=== PATIENT | male | born 1940 | race Caucasian/White ===

== ENCOUNTER 2019-12-27 08:20 | Day surgery (SDC) | payer MEDICARE ==
[2019-12-22 14:35] VITALS: BMI 25.0
[~2019-12-27 08:20] MED LIST: ALPRAZolam 0.25 MG TAB PO PRN; ALPRAZolam 0.5 MG TAB PO PRN; ASPIRIN 325 MG TAB PO ONE; NITROGLYCERIN SL TABS 0.4 MG TAB SUBLINGUAL PRN; SODIUM CHLORIDE 0.9% 1,000 ML IV SCH; SODIUM CHLORIDE 0.9% 1,000 ML in EMPTY BAG 1 BAG IV ONE
[2019-12-27 08:53] VITALS: RESP 16; TEMP 97.6
[2019-12-27] MEDS ORDERED: SODIUM CHLORIDE 0.9% 1,000 ML IV ONE (08:55)
[2019-12-27] MEDS ORDERED: LIDOCAINE 1% INJ 10MG/ML (20 ML MDV) ONE (11:54)
[2019-12-27] MEDS ORDERED: VERAPAMIL 2.5 MG/ML 2 ML AMP ONE (11:54)
[2019-12-27] MEDS ORDERED: MIDAZOLAM 2 MG/2 ML VIAL IV ONE (12:00)
[2019-12-27] MEDS ORDERED: LIDOCAINE 1% INJ 10MG/ML (20 ML MDV) SQ ONE (12:04)
[2019-12-27] MEDS: VERAPAMIL SYRINGE (5 MG/10 ML) INTRAARTER ONE ×2 (12:06→12:16)
[2019-12-27] MEDS ORDERED: HEPARIN SODIUM 1,000 UN/ML (10ML VL) ONE (12:07)
[2019-12-27] MEDS ORDERED: HEPARIN SODIUM 1,000 UN/ML (10ML VL) IV ONE (12:08)
[2019-12-27] MEDS ORDERED: NITROGLYCERIN SL TABS 0.4 MG TAB SUBLINGUAL ONE ×2 (12:14)
[2019-12-27] MEDS ORDERED: IOPAMIDOL-370 100ML BTL INJ ONE (12:16)
[2019-12-27] MEDS ORDERED: SODIUM CHLORIDE 0.9% 1,000 ML IV SCH (12:30)
--- NOTE | 2019-12-27 12:55 | CC ---
CARDIAC CATHETERIZATION REPORT DATE OF SERVICE: 12/27/2019. PROCEDURE: Left heart catheterization and coronary angiography. PERFORMED BY: Dr. Dimitrios Decker. Moderate conscious sedation time was 17 minutes. The patient was administered Versed. His oxygen saturation, hemodynamics and EKG were monitored closely. CLINICAL INFORMATION: Mr. Joel Johnson is an 79-year-old gentleman with a known history of hypertension, smoking, hyperlipidemia, and recently has developed chronic renal failure. He quit smoking about 6 weeks ago. He has been experiencing exertional chest pressure and tightness strongly suggestive of angina. He was therefore advised coronary angiography after due discussion. He was orally hydrated, was brought in and hydrated intravenously and we plan to give him the least amount of contrast. I also had the discussion with the retail coverage merchandiser as well. PROCEDURE NOTE: Under local anesthesia and strict aseptic precautions, a 6-Malagasy introducer was placed in the right radial artery. Using a JR4 and JL3.5 catheters I performed coronary angiography. The same right catheter was used to check LV pressures. LV gram was not performed. Patient received about 45 mL of contrast. He tolerated the procedure well without complications. CARDIAC CATHETERIZATION FINDINGS: Left ventricular end-diastolic pressure was about 15 mmHg without any gradient across aortic valve. Patient seemed to be in and out of atrial fibrillation during the procedure. CORONARY ANGIOGRAPHY FINDINGS: RIGHT CORONARY ARTERY: Technically a nondominant vessel, has no significant disease with limited amount of myocardium being supplied by it. LEFT MAIN CORONARY ARTERY: This is a short patent disease-free vessel that bifurcates into LAD and circumflex. Left main itself is free of significant disease. LEFT ANTERIOR DESCENDING CORONARY ARTERY: Good caliber vessel extends along the anterior wall, gives off a large diagonal proximally and LAD is of a good caliber. There is no significant disease in the LAD. The diagonal has minor irregularities. The LAD has no significant disease, gives off septal and diagonal branches runs all the way to the apex supplying a sizable amount of myocardium. The distal LAD supplies the inferoapical portion of left ventricle. No significant disease other than minor irregularities of no more than 30% to 35%. LEFT POSTERIOR CIRCUMFLEX CORONARY ARTERY: This is a dominant vessel gives off a good- sized obtuse marginal proximally, tortuous. No significant disease and distally the vessel bifurcates into PDA and PLV, both of which have minor irregularities. No significant disease. Circumflex is dominant and relatively disease free. LEFT VENTRICULOGRAM: Left ventriculogram was not performed. FINAL IMPRESSION: This patient has a left dominant system. No significant coronary artery disease. Minor irregularities,. Mild to moderate amount of calcification. Filling pressures are acceptable and no gradient across aortic valve. RECOMMENDATIONS: Findings were discussed with the patient and family. I am recommending continued medical therapy with risk factor modification. The patient will be hydrated today discharged later on today. BUN and creatinine will be checked in 3 days and he will see retail coverage merchandiser in one week and I will see him next week. Advised to continue to refrain from smoking. Given the fact, he has some atrial fibrillation episodes, I am placing a 24-hour Holter today and we will initiate him on Eliquis 2.5 mg b.i.d. Discussed my thoughts in detail with the patient and family. ESTHER / ALMA: [id number] /
[2019-12-27 17:06] VITALS: BP 163/71; PULSE 77
== END 2019-12-27 18:33 | disposition home or self-care (01) ==
LOC: CATHCVL 08:20
PROVIDERS: ATTEND Internal Medicine Interventional Cardiology
DX: I25.110 Atherosclerotic heart disease of native coronary artery with unstable angina pectoris (principal); I12.9 Hypertensive chronic kidney disease with stage 1 through stage 4 chronic kidney disease, or unspecified chronic kidney disease; N18.3 Chronic kidney disease, stage 3 (moderate); E78.00 Pure hypercholesterolemia, unspecified; E78.5 Hyperlipidemia, unspecified; Z79.82 Long term (current) use of aspirin; Z79.899 Other long term (current) drug therapy; Z87.891 Personal history of nicotine dependence
CPT/HCPCS: 93458; C1769; C1894; J2250; J2001; J1644; Q9967

== ENCOUNTER → 2020-06-14 | Outpatient (CLI) | payer MEDICARE ==
--- NOTE | 2020-06-15 05:00 | CT ---
EXAMINATION TYPE: CT chest wo con DATE OF EXAM: 06/14/2020 COMPARISON: None HISTORY: 79-year-old male J18.9, Persistent pneumonia. TECHNIQUE: Contiguous axial scanning of the chest without IV contrast. Coronal and sagittal reconstru ctions performed. CT DLP: 309.9 mGycm Automated exposure control for dose reduction was used. FINDINGS: Heart borderline enlarged with small pericardial effusion measuring 6 mm thick. Three-vessel coronary artery calcifications are present. Moderate atherosclerotic arch calcifications with conventional arch was a branching anatomy. Mildly e ctatic upper descending thoracic aorta 3.1 cm. No thoracic lymphadenopathy by CT size criteria. 1 cm hypodense nodule left lobe of thyroid gland to be further evaluated with dedicated thyroid ultrasound. Mild emphysematous change. No consolidation or pleural effusion. Visualized upper abdomen shows lesions within the upper pole of the left kidney which are indetermina te. Unable to exclude any solid lesions. At least one cyst measuring up to 4.7 cm is demonstrated. Pa rtially visualized 7 mm left renal calculus as well. Moderate stool burden. Bones: No osseous destructive process. IMPRESSION: 1. BORDERLINE TO MILD CARDIOMEGALY. SMALL 6 MM THICK PERICARDIAL EFFUSION. 2. CAD WITH 3 VESSEL CORONARY ARTERY CALCIFICATIONS. 3. COPD WITH MILD EMPHYSEMA. NO ACUTE PULMONARY PROCESS SEEN. 4. LESIONS WITHIN THE VISUALIZED UPPER POLE OF THE LEFT KIDNEY WHICH ARE INDETERMINATE. AT LEAST ONE CYST MEASURING UP TO 4.7 CM IS SEEN. UNABLE TO EXCLUDE ANY SOLID LESIONS. DEDICATED RENAL MASS PROTOC OL CT IS RECOMMENDED TO FURTHER EVALUATE. PARTIALLY VISUALIZED 7 MM LEFT RENAL CALCULUS WELL.
== END | disposition home or self-care (01) ==
LOC: RADCTMAIN 16:49
PROVIDERS: ATTEND Internal Medicine
DX: I51.7 Cardiomegaly (principal); I31.3 Pericardial effusion (noninflammatory); I25.10 Atherosclerotic heart disease of native coronary artery without angina pectoris; J43.9 Emphysema, unspecified
CPT/HCPCS: 71250

== ENCOUNTER 2020-06-16 18:53 | Emergency (ER) | payer MEDICARE ==
[2020-06-16 19:04] VITALS: BP 118/65; PULSE 65; RESP 20; TEMP 98.2
--- NOTE | 2020-06-16 19:34 | ED ---
General Adult HPI - General Chief complaint: Dizziness Stated complaint: Dizziness Time Seen by Provider: 06/16/20 19:13 Source: patient Mode of arrival: wheelchair Limitations: no limitations - History of Present Illness Initial comments: Dictation was produced using [employer] dictation software. please excuse any grammatical, word or spelling errors. This patient was cared for during a federal and state declared state of emergency secondary to Covid 19 Chief Complaint: 79-year-old male presents with presyncope History of Present Illness: Is 79-year-old male he was found member for another person that was being evaluated as a patient in the ER. Patient's family member was admitted. He went upstairs with his family member when all of a sudden he felt very faint. He did not pass out. He was helped into a wheelchair brought to the emergency department. Patient states after that episode he felt completely fine after that. Patient's history of carotid endarterectomy to the left carotid. He did not express any palpitations prior to feeling the symptoms of presyncope. Patient states he's feeling very distraught about his wifes condition who is a patient just in the emergency room prior to his episode. Patient has multiple comorbidities including dyslipidemia, hypertension renal disease. The ROS documented in this emergency department record has been reviewed and confirmed by me. Those systems with pertinent positive or negative responses have been documented in the HPI. All other systems are other negative and/or noncontributory. PHYSICAL EXAM: General Impression: Alert and oriented x3, not in acute distress HEENT: Normocephalic atraumatic, extra-ocular movements intact, pupils equal and reactive to light bilaterally, mucous membranes moist. Cardiovascular: Heart regular rate and rhythm Chest: Able to complete full sentences, no retractions, no tachypnea Abdomen: abdomen soft, non-tender, non-distended, no organomegaly Musculoskeletal: Pulses present and equal in all extremities, no peripheral edema Motor: no focal deficits noted Neurological: CN II-XII grossly intact, no focal motor or sensory deficits noted Skin: Intact with no visualized rashes Psych: Normal affect and mood ED course: 79-year-old male with clinical presentation consistent with presyncope. Patient does have multiple comorbidities. Patient states he feels fine at the moment. Physical examination is benign. Signs upon arrival are within acceptable limits. EKG shows A fibrillation. Patient does have history of A. fib. EKG interpretation: Ventricular rate 67, A. fib, QRS 86, QTC 407. No ND prolongation, no QTC prolongation, no ST or T-wave changes noted. No old EKG for comparison. Overall, this EKG is unremarkable Approximately 8:18 PM I was told by nursing staff that Patient eloped. - Related Data Home Medications Medication Instructions Recorded Confirmed Atorvastatin [Lipitor] 20 mg PO HS 03/31/14 12/27/19 Benazepril HCl 20 mg PO DAILY 03/31/14 12/27/19 amLODIPine [Norvasc] 10 mg PO DAILY 03/31/14 12/27/19 Aspirin [Adult Low Dose Aspirin EC] 81 mg PO DAILY 12/22/19 12/27/19 Benazepril HCl 30 mg PO HS 12/22/19 12/27/19 Carvedilol [Coreg] 12.5 mg PO BID 12/22/19 12/27/19 Allergies Allergy/AdvReac Type Severity Reaction Status Date / Time No Known Allergies Allergy Verified 06/16/20 19:04 Review of Systems ROS Statement: Those systems with pertinent positive or pertinent negative responses have been documented in the HPI. ROS Other: All systems not noted in ROS Statement are negative. Past Medical History Past Medical History: Hyperlipidemia, Hypertension, Renal Disease Additional Past Medical History / Comment(s): kidney function is at 24% requires extra fluids to flushout kidneys with dye, shortness of breath History of Any Multi-Drug Resistant Organisms: None Reported Past Surgical History: Heart Catheterization Additional Past Surgical History / Comment(s): CAROTID ENDARTECTOMY Past Anesthesia/Blood Transfusion Reactions: Previous Problems w/ Anesthesia Additional Past Anesthesia/Blood Transfusion Reaction / Comment(s): passed out one time after getting home from procedure Past Psychological History: Anxiety Smoking Status: Never smoker Past Alcohol Use History: Daily Past Drug Use History: None Reported - Past Family History Father Family Medical History: Cancer Mother Family Medical History: Cancer General Exam Limitations: no limitations Course Vital Signs 06/16/20 19:03 Temperature 98.2 F Pulse Rate 65 Respiratory 20 Rate Blood Pressure 118/65 O2 Sat by Pulse 96 Oximetry Disposition Clinical Impression: Pre-syncope Disposition: Left Against Medical Advice Condition: Fair Referrals: Bill Lin MD [Primary Care Provider] - 1-2 days Time of Disposition: 20:19
== END 2020-06-16 20:28 | disposition left against medical advice (07) ==
LOC: EC 18:53
DX: R55 Syncope and collapse (principal); R42 Dizziness and giddiness; I48.91 Unspecified atrial fibrillation; Z53.29 Procedure and treatment not carried out because of patient's decision for other reasons; I10 Essential (primary) hypertension; E78.5 Hyperlipidemia, unspecified; Z79.82 Long term (current) use of aspirin; Z79.02 Long term (current) use of antithrombotics/antiplatelets; Z79.899 Other long term (current) drug therapy
CPT/HCPCS: 93005; 99283

== ENCOUNTER → 2020-10-23 | Outpatient (CLI) | payer MEDICARE | END | disposition home or self-care (01) | LOC: LABWHC1 12:14 | PROVIDERS: ATTEND Nurse Practitioner Adult Health | DX: R06.02 Shortness of breath (principal) | CPT/HCPCS: U0003; C9803 ==

== ENCOUNTER → 2021-02-16 | Outpatient (CLI) | payer MEDICARE ==
--- NOTE | 2021-02-17 11:54 | CT ---
EXAMINATION TYPE: CT chest wo con DATE OF EXAM: 02/16/2021 COMPARISON: 06/14/2020 HISTORY: Dyspnea CT DLP: 635.1 mGycm, Automated exposure control for dose reduction was used. CONTRAST: Performed injected with 0 mL of Isovue 300. TECHNIQUE: Axial images were obtained at 5 mm thick sections. Reconstructed images are reviewed on [facility] computer in the coronal plane. FINDINGS: There is a hypodensity within the inferior left lobe thyroid, present previously. This coul d be evaluated with ultrasound. There is a small to moderate right pleural effusion. A small left pleural effusion is present. No enlarged mediastinal or hilar adenopathy is evident. Small pretracheal lymph nodes are present. T he ascending aorta diameter at the level of the main pulmonary artery is 3.8 cm. The main pulmonary artery diameter at the bifurcation is 3.8 cm. Dense coronary artery calcifications present. Small per icardial effusion is present. Limited CT sections are obtained through the upper abdomen. Multiple bilateral renal cysts are presen t. There are some focal rounded hyperdense areas within the kidneys. IMPRESSIONS: 1. Small to moderate right and small left pleural effusions. 2. Small cardio effusion. 3. Multiple bilateral renal cysts. Some hyperdense areas are within the kidneys. Consider evaluation with ultrasound
== END ==
LOC: RADCTMAIN 06:49
PROVIDERS: ATTEND Internal Medicine
DX: J90 Pleural effusion, not elsewhere classified (principal); N28.1 Cyst of kidney, acquired
CPT/HCPCS: 71250

== ENCOUNTER → 2021-02-23 | Outpatient (CLI) | payer MEDICARE ==
--- NOTE | 2021-02-23 16:13 | US ---
EXAMINATION TYPE: US chest DATE OF EXAM: 02/23/2021 COMPARISON: CT chest 02/16/2021 CLINICAL HISTORY: J90 pleural effusion. pleural effusion. TECHNIQUE: Targeted ultrasound of the posterior lower bilateral hemithoraces EXAM MEASUREMENTS: Right Pleural Effusion pocket size: 10.9 cm Right skin surface to fluid distance: 2.0 cm Lung tissue visualized at 1cm in fluid pocket. Left pleural effusion pocket size: 2.1 cm Left skin surface to fluid distance: 1.9 cm Right side marked for possible thoracentesis outside the dept. Pulmonologists are able to review the images in the patient?s EMR. There are echoes present within the effusions possibly due to some debris IMPRESSIONS: Right greater than left pleural effusions
== END | disposition home or self-care (01) ==
LOC: RADUSWWP 15:29
PROVIDERS: ATTEND Internal Medicine
DX: J90 Pleural effusion, not elsewhere classified (principal)
CPT/HCPCS: 76604

== ENCOUNTER 2021-03-02 11:45 | Day surgery (SDC) | payer MEDICARE ==
[2021-03-02 13:02] LABS: Mean Platelet Volume 9.2; Platelet Count 143 k/uL (150-450)
[2021-03-02 13:09] VITALS: TEMP 98.2
[2021-03-02 13:15] LABS: Prothrombin Time 10.6 sec (9.0-12.0)
--- NOTE | 2021-03-02 15:41 | XR ---
EXAMINATION TYPE: XR chest 1V portable DATE OF EXAM: 03/02/2021 COMPARISON: Chest x-ray dated 02/14/2021 HISTORY: Status post right thoracentesis TECHNIQUE: Single frontal view of the chest is obtained. FINDINGS: There is improved visualization of the right hemidiaphragm. No evident pneumothorax. Heart is enlarged. Aorta is dense. IMPRESSION: No evident complication status post thoracentesis
[2021-03-02 16:03] VITALS: BP 160/76; PULSE 65; RESP 18
[2021-03-02 16:27] LABS: Appearance,BF Hazy; Color,BF Yellow
--- NOTE | 2021-03-02 16:27 | US ---
EXAMINATION TYPE: US thoracentesis DATE OF EXAM: 03/02/2021 COMPARISON: NONE HISTORY: Pleural effusion. FINDINGS: Maximal barrier technique was utilized. The skin overlying a suitable pocket of fluid was localized and the overlying skin prepped and draped. Lidocaine was used for local anesthesia. Ultras ound was used with sterile technique. A 5 Sinhala catheter over guide needle was advanced into the pl eural fluid collection using ultrasound guidance the catheter advanced, needle removed. Approximatel y 1.5 liter(s) of serous fluid was removed. Catheter was withdrawn and hemostasis achieved. There i s no immediate complication. The patient discharged in stable condition without complication. IMPRESSION: STATUS POST ULTRASOUND GUIDED THORACENTESIS, POST PROCEDURE CHEST X-RAY PENDING. THIS [place] OCEDURE WAS PERFORMED BY THE UNDERSIGNED.
[2021-03-02 16:28] LABS: Nucleated Cells, Body Fluid 93 /uL; RBC, Body Fluid 446 /uL
[2021-03-02 16:36] LABS: Mononuclear WBC,Body Fluid 79 %; Polynuclear WBC,Body Fluid 18 %; Total Cells Counted,Body Fluid 100
[2021-03-03 00:32] LABS: Glucose, BF Source Pleural Fluid; Glucose, Body Fluid 111 mg/dL
== END 2021-03-02 15:55 | disposition home or self-care (01) ==
LOC: RADPROMAIN 11:45
PROVIDERS: ATTEND Internal Medicine
DX: J90 Pleural effusion, not elsewhere classified (principal)
CPT/HCPCS: 32555; 36415; 71045; 82945; 85049; 85610; 87070; 87075; 87116; 87205; 87206; 89050

== ENCOUNTER 2021-04-27 10:19 | Emergency (ER) | payer MEDICARE ==
[2021-04-27] MEDS ORDERED: IPRATROPIUM-ALBUTEROL 3 ML NEB INHALATION STA (11:22)
--- NOTE | 2021-04-27 11:22 | ED ---
Recheck HPI - General Chief Complaint: Recheck/Abnormal Lab/Rx Stated Complaint: Abn Lab Time Seen by Provider: 04/27/21 10:33 Source: patient, RN notes reviewed Mode of arrival: ambulatory - History of Present Illness Initial Comments: This is a 81-year-old male with a history of COPD peripheral vascular disease stage IV renal disease diastolic heart failure who presents today with complaints of possible anemia. He's had shortness of breath some generalized weakness no chest pain no fevers chills sweats. No bleeding reported. - Related Data Home Medications Medication Instructions Recorded Confirmed amLODIPine [Norvasc] 10 mg PO DAILY 03/31/14 04/27/21 Carvedilol [Coreg] 12.5 mg PO BID 12/22/19 04/27/21 Allopurinol [Zyloprim] 100 mg PO DAILY 02/27/21 04/27/21 Furosemide [Lasix] 20 mg PO DAILY 02/27/21 04/27/21 ALPRAZolam [Xanax] 0.5 mg PO HS PRN 04/27/21 04/27/21 Apixaban [Eliquis] 2.5 mg PO BID 04/27/21 04/27/21 Atorvastatin [Lipitor] 40 mg PO HS 04/27/21 04/27/21 Budesonide [Pulmicort] 0.5 mg INHALATION RT-BID@0700,1900 04/27/21 04/27/21 Epoetin Fermín [Epogen] 4,000 unit SQ MOWEFR 04/27/21 04/27/21 Ipratropium-Albuterol Nebulize 3 ml INHALATION RT-Q4H PRN 04/27/21 04/27/21 [Duoneb 0.5 mg-3 mg/3 ml Soln] Ipratropium-Albuterol Nebulize 3 ml INHALATION RT-Q6H 04/27/21 04/27/21 [Duoneb 0.5 mg-3 mg/3 ml Soln] Isosorbide Mononitrate ER [Imdur] 60 mg PO DAILY 04/27/21 04/27/21 Levofloxacin [Levaquin] 500 mg PO DAILY 04/27/21 04/27/21 Multivitamins, Thera [Multivitamin 1 tab PO DAILY 04/27/21 04/27/21 (formulary)] Sodium Chloride [Cheval] 1 spray EA NOSTRIL Q4H PRN 04/27/21 04/27/21 hydrALAZINE HCL 50 mg PO Q8H 04/27/21 04/27/21 lisinopriL [Zestril] 5 mg PO DIRECTED 04/27/21 04/27/21 Allergies Allergy/AdvReac Type Severity Reaction Status Date / Time No Known Allergies Allergy Verified 04/27/21 10:58 Review of Systems ROS Statement: Those systems with pertinent positive or pertinent negative responses have been documented in the HPI. ROS Other: All systems not noted in ROS Statement are negative. Past Medical History Past Medical History: Hyperlipidemia, Hypertension, Renal Disease Additional Past Medical History / Comment(s): kidney function is at 24% requires extra fluids to flushout kidneys with dye, shortness of breath History of Any Multi-Drug Resistant Organisms: None Reported Past Surgical History: Heart Catheterization Additional Past Surgical History / Comment(s): CAROTID ENDARTECTOMY, colonoscopy Past Anesthesia/Blood Transfusion Reactions: Previous Problems w/ Anesthesia Additional Past Anesthesia/Blood Transfusion Reaction / Comment(s): passed out one time after getting home from procedure Past Psychological History: Anxiety Smoking Status: Former smoker Past Alcohol Use History: Rare Past Drug Use History: None Reported - Past Family History Father Family Medical History: Cancer Mother Family Medical History: Cancer General Exam - General Exam Comments Initial Comments: This is a well-developed asthenic appearing male who is awake alert oriented 3 General appearance: alert, in no apparent distress Head exam: Present: atraumatic, normocephalic, normal inspection Eye exam: Present: normal appearance, PERRL, EOMI. Absent: scleral icterus, conjunctival injection, periorbital swelling ENT exam: Present: normal exam, mucous membranes moist Neck exam: Present: normal inspection. Absent: tenderness, meningismus, lymphadenopathy Respiratory exam: Present: wheezes, decreased breath sounds. Absent: respiratory distress, rales, rhonchi, stridor Cardiovascular Exam: Present: regular rate, normal rhythm, normal heart sounds. Absent: systolic murmur, diastolic murmur, rubs, gallop, clicks GI/Abdominal exam: Present: soft, normal bowel sounds. Absent: distended, tenderness, guarding, rebound, rigid Extremities exam: Present: normal inspection, full ROM, normal capillary refill. Absent: tenderness, pedal edema, joint swelling, calf tenderness Back exam: Present: normal inspection Neurological exam: Present: alert, oriented X3, CN II-XII intact Psychiatric exam: Present: normal affect, normal mood Skin exam: Present: warm, dry, intact, pallor. Absent: rash Course Vital Signs 04/27/21 04/27/21 04/27/21 10:20 11:32 12:20 Temperature 97.6 F Pulse Rate 74 73 72 Respiratory 18 18 Rate Blood Pressure 137/88 132/71 O2 Sat by Pulse 99 100 Oximetry 04/27/21 04/27/21 04/27/21 12:29 14:01 14:05 Temperature 97.5 F L 97.8 F Pulse Rate 76 68 67 Respiratory 20 18 Rate Blood Pressure 144/74 144/78 O2 Sat by Pulse 100 97 Oximetry 04/27/21 04/27/21 14:09 14:39 Temperature 98.6 F 98.6 F Pulse Rate 76 72 Respiratory 20 18 Rate Blood Pressure 134/72 143/76 O2 Sat by Pulse 97 97 Oximetry - Reevaluation(s) Reevaluation #1: 04/27/21 14:03 I did discuss case with the patient as well as Dr. Mitchell. Patient does have a hemoglobin 7.2 however he is symptomatic. His been trending below the 7.9. This symptomatology he will be given a unit of blood. Medical Decision Making - Medical Decision Making Patient is resting comfortably he will be discharged after the blood transfusion. He is follow-up with his doctor as planned - Lab Data Result diagrams: 04/27/21 11:25 04/27/21 11:25 Lab Results 04/27/21 04/27/21 04/27/21 Range/Units 11:25 11:25 11:25 WBC 2.6 L (3.8-10.6) k/uL RBC 2.45 L (4.30-5.90) m/uL Hgb 7.2 L (13.0-17.5) gm/dL Hct 21.6 L (39.0-53.0) % MCV 88.2 (80.0-100.0) fL MCH 29.2 (25.0-35.0) pg MCHC 33.1 (31.0-37.0) g/dL RDW 17.5 H (11.5-15.5) % Plt Count 110 L (150-450) k/uL MPV 9.1 Neutrophils % 51 % Lymphocytes % 27 % Monocytes % 11 % Eosinophils % 7 % Basophils % 0 % Neutrophils # 1.4 (1.3-7.7) k/uL Lymphocytes # 0.7 L (1.0-4.8) k/uL Monocytes # 0.3 (0-1.0) k/uL Eosinophils # 0.2 (0-0.7) k/uL Basophils # 0.0 (0-0.2) k/uL Hypochromasia Slight Poikilocytosis Slight Anisocytosis Slight Sodium 135 L (137-145) mmol/L Potassium 3.9 (3.5-5.1) mmol/L Chloride 98 (98-107) mmol/L Carbon Dioxide 30 (22-30) mmol/L Anion Gap 7 mmol/L BUN 75 H (9-20) mg/dL Creatinine 3.02 H (0.66-1.25) mg/dL Est GFR (CKD-EPI)AfAm 21 (>60 ml/min/1.73 sqM) Est GFR (CKD-EPI)NonAf 18 (>60 ml/min/1.73 sqM) Glucose 125 H (74-99) mg/dL Calcium 7.8 L (8.4-10.2) mg/dL Total Bilirubin 1.3 (0.2-1.3) mg/dL AST 35 (17-59) U/L ALT 19 (4-49) U/L Alkaline Phosphatase 116 (38-126) U/L Total Protein 4.8 L (6.3-8.2) g/dL Albumin 2.7 L (3.5-5.0) g/dL Blood Type A Positive Blood Type Confirm Blood Type Recheck No Previous Record Bld Type Recheck Status CABO Indicated Antibody Screen NEGATIVE Crossmatch See Detail Spec Expiration Date 04/30/2021232404/27/21 Range/Units 12:52 WBC (3.8-10.6) k/uL RBC (4.30-5.90) m/uL Hgb (13.0-17.5) gm/dL Hct (39.0-53.0) % MCV (80.0-100.0) fL MCH (25.0-35.0) pg MCHC (31.0-37.0) g/dL RDW (11.5-15.5) % Plt Count (150-450) k/uL MPV Neutrophils % % Lymphocytes % % Monocytes % % Eosinophils % % Basophils % % Neutrophils # (1.3-7.7) k/uL Lymphocytes # (1.0-4.8) k/uL Monocytes # (0-1.0) k/uL Eosinophils # (0-0.7) k/uL Basophils # (0-0.2) k/uL Hypochromasia Poikilocytosis Anisocytosis Sodium (137-145) mmol/L Potassium (3.5-5.1) mmol/L Chloride (98-107) mmol/L Carbon Dioxide (22-30) mmol/L Anion Gap mmol/L BUN (9-20) mg/dL Creatinine (0.66-1.25) mg/dL Est GFR (CKD-EPI)AfAm (>60 ml/min/1.73 sqM) Est GFR (CKD-EPI)NonAf (>60 ml/min/1.73 sqM) Glucose (74-99) mg/dL Calcium (8.4-10.2) mg/dL Total Bilirubin (0.2-1.3) mg/dL AST (17-59) U/L ALT (4-49) U/L Alkaline Phosphatase (38-126) U/L Total Protein (6.3-8.2) g/dL Albumin (3.5-5.0) g/dL Blood Type Blood Type Confirm A Positive Blood Type Recheck Bld Type Recheck Status Antibody Screen Crossmatch Spec Expiration Date Disposition Clinical Impression: Symptomatic anemia Disposition: HOME SELF-CARE Condition: Good Instructions (If sedation given, give patient instructions): Anemia (ED) Is patient prescribed a controlled substance at d/c from ED?: No Referrals: Alexis Mitchell MD [Primary Care Provider] - 1-2 days
[2021-04-27 12:03] LABS: Albumin 2.7 g/dL (3.5-5.0); Anisocytosis Slight; Basophils % (A) 0 %; Calcium 7.8 mg/dL (8.4-10.2); Eosinophils # (A) 0.2 k/uL (0-0.7); Eosinophils % (A) 7 %; HCT 21.6 % (39.0-53.0); HGB 7.2 gm/dL (13.0-17.5); Hypochromasia Slight; Lymphocytes # (A) 0.7 k/uL (1.0-4.8); Lymphocytes % (A) 27 %; MCH 29.2 pg (25.0-35.0); MCHC 33.1 g/dL (31.0-37.0); MCV 88.2 fL (80.0-100.0); Mean Platelet Volume 9.1; Monocytes # (A) 0.3 k/uL (0-1.0); Monocytes % (A) 11 %; Neutrophils # (A) 1.4 k/uL (1.3-7.7); Neutrophils % (A) 51 %; Platelet Count 110 k/uL (150-450); Poikilocytosis Slight; Potassium 3.9 mmol/L (3.5-5.1); RBC 2.45 m/uL (4.30-5.90); RDW 17.5 % (11.5-15.5); Total Bilirubin 1.3 mg/dL (0.2-1.3); Total Protein 4.8 g/dL (6.3-8.2); WBC 2.6 k/uL (3.8-10.6)
[2021-04-27 14:23] VITALS: TEMP 98.6
[2021-04-27 17:51] VITALS: BP 133/79; PULSE 65; RESP 14
== END 2021-04-27 18:17 | disposition home or self-care (01) ==
LOC: EC 10:19
DX: D64.9 Anemia, unspecified (principal); E78.5 Hyperlipidemia, unspecified; F41.9 Anxiety disorder, unspecified; I13.0 Hypertensive heart and chronic kidney disease with heart failure and stage 1 through stage 4 chronic kidney disease, or unspecified chronic kidney disease; I50.32 Chronic diastolic (congestive) heart failure; N18.4 Chronic kidney disease, stage 4 (severe); I73.9 Peripheral vascular disease, unspecified; J44.9 Chronic obstructive pulmonary disease, unspecified; Z87.891 Personal history of nicotine dependence; Z79.01 Long term (current) use of anticoagulants; Z79.51 Long term (current) use of inhaled steroids; Z79.899 Other long term (current) drug therapy
CPT/HCPCS: 99284 ×2; 36415; 94640; 86900; 86901; 80053; 85025; 86850; 86920; 36430; P9016